=== PATIENT | male | born 1965 | race Caucasian/White ===

== ENCOUNTER 2019-07-23 16:03 | Emergency (ER) | payer OTHER ==
[~2019-07-23 16:03] MED LIST: Iopamidol 370 76% 100 ML VIAL ONE
--- NOTE | 2019-07-23 16:16 | CT ---
CT Brain WO Con: 07/23/2019 12:00 AM CLINICAL HISTORY: Facial droop, right side, right-sided weakness. COMPARISON: None. FINDINGS: Hemorrhage: None. Ventricular system: Normal in size and morphology for the patient's age. Cerebral parenchyma: Normal Midline shift: None. Mass: No mass effect. Calvarium: Normal. Visualized Paranasal sinuses: There is mucosal thickening of the paranasal sinuses.. IMPRESSION: No acute intracranial abnormalities. Telephone call findings placed at 1611 hours.
--- NOTE | 2019-07-23 16:41 | CT ---
EXAM: CT angiogram head and neck with IV contrast and 3-D reconstructions PROVIDED CLINICAL HISTORY: Level 1 stroke alert. Right-sided facial droop and right-sided blindness as well as right arm and leg weakness. COMPARISON: Noncontrast CT head on 07/23/2019. FINDINGS: Vascular calcifications and mild atherosclerotic plaque is seen in the aortic arch. The ascending tho racic aorta is ectatic measuring 4.1 cm. There is a normal arrangement of the great vessels at the aortic arch with mild narrowing involving the origin of the left common carotid artery. A portion of the right subclavian artery is obscured, but the subclavian arteries are patent bilaterally. The innominate artery and right common carotid artery are patent. Vascular calcifications are seen at the carotid artery bifurcations bilaterally. No significant steno sis is seen involving the internal carotid arteries bilaterally. External carotid arteries are patent. The petrous portion of each internal carotid artery is not well opacified. Mild vascular calc ifications are seen in each carotid siphon. The right vertebral artery is dominant and patent. The left vertebral artery is smaller in caliber an d arises from the aortic arch is also patent. The bilateral middle cerebral and anterior cerebral arteries are patent. No focal stenosis or branch occlusion is identified. The distal vertebral arteries and basilar artery as well as posterior cerebral arteries are patent. No focal aneurysm is seen within the limitations of the technique of this exam. Large bullous emphyse matous changes are seen within the right upper lobe with minimal bullous subcentimeter changes and pleural parenchymal scarring in the left upper lobe. There is complete opacification of the right maxillary antrum. IMPRESSION: 1. Minimal atherosclerotic plaque and calcifications at the carotid artery bifurcations, but no focal stenosis is seen involving the internal carotid arteries bilaterally. Petrous portion of each internal carotid artery is not well opacified but are symmetric in appearance bilaterally. 2. No focal stenosis or branch occlusion is seen involving the [place] or vertebral basilar system. 3. Above findings discussed Dr. Wade in the emergency department on 07/23/2019 at 1636 hours.
[2019-07-23] MEDS ORDERED: diphenhydrAMINE 50 MG/ML VIAL ONE (16:46)
[2019-07-23] MEDS ORDERED: methylPREDNISolone Sod Succ/PF 125 MG/2 ML VIAL ONE (16:46)
[2019-07-23] MEDS ORDERED: Metoclopramide HCl 10 MG/2 ML VIAL ONE (16:46)
[2019-07-23 17:02] LABS: #Eosinphils 0.5 thou/uL (0.0-0.7); #Lymphocytes 2.1 thou/uL (1.20-3.40); #Monocytes 0.7 thou/uL (0.11-0.59); #Neutrophils 5.4 thou/uL (1.40-6.50); %Basophils 0.3 % (0.0-1.0); %Eosinophils 5.7 % (0.0-10.0); %Lymphocytes 23.9 % (21.0-51.0); %Neutrophils 62.2 % (42.0-75.0); Mean Corpuscular Hemoglobin 31.8 pg (27.0-31.0); Mean Corpuscular Volume 93.6 fL (78.0-98.0); Mean Platelet Volume 7.2 fL (7.4-10.4); Platelet Count 354 thou/uL (130-400); RBC Distribution Width 11.7 % (11.5-14.5); Red Blood Cell (RBC) Count 4.41 mill/uL (4.70-6.10); White Blood Cell (WBC) Count 8.6 thou/uL (4.8-10.8)
[2019-07-23 17:07] LABS: PTT 28.2 SEC (22.9-36.1); Prothrombin Time 12.7 SEC (12.0-14.7)
[2019-07-23 17:08] LABS: Bilirubin Negative (Negative); Blood, Urine Negative (Negative); Clarity Clear (Clear); Glucose, Urine (Dipstick) Normal (Negative); Leukocyte Negative Leu/uL (Negative); Nitrite Negative (Negative); Protein, Urine (Dipstick) Negative (Neg-Trace); Urobilinogen Normal mg/dL (Less than 2)
[2019-07-23 17:20] LABS: ALT (SGPT) 13 U/L (8-55); AST (SGOT) 18 U/L (5-34); Albumin 4.5 g/dL (3.5-5.0); Alkaline Phosphatase 62 U/L (40-110); Anion Gap 16 mmol/L (10-20); BUN (Urea Nitrogen) 13 mg/dL (8.4-25.7); Bilirubin, Total 0.6 mg/dL (0.2-1.2); CK (CPK) 235 U/L (30-200); Calc. Creatinine Clearance 0 mL/min (70-130); Calcium 9.8 mg/dL (7.8-10.44); Carbon Dioxide 20 mmol/L (22-29); Chloride 108 mmol/L (98-107); Estimated GFR-MDRD Greater than 90; Globulin 2.8 g/dL (2.4-3.5); Glucose 91 mg/dL (70-105); Potassium 4.2 mmol/L (3.5-5.1); Protein, Total 7.3 g/dL (6.0-8.3); Sodium 140 mmol/L (136-145)
[2019-07-23] MEDS ORDERED: Magnesium 2 GM/50 ML BAG (IN WATER) ONE (18:12)
[2019-07-23] MEDS ORDERED: Ketorolac Tromethamine 30 MG/ML VIAL ONE (18:12)
[2019-07-23] MEDS ORDERED: Metoprolol Tartrate 5 MG/5 ML VIAL ONE (22:05)
== END 2019-07-23 22:32 | disposition short-term general hospital (02) ==
LOC: ERS 16:03 → EEVIPCON 16:03 → ERS 22:32
DX: I63.9 Cerebral infarction, unspecified (principal); I48.92 Unspecified atrial flutter; I10 Essential (primary) hypertension; Z79.82 Long term (current) use of aspirin; Z79.899 Other long term (current) drug therapy
CPT/HCPCS: 70450; 70496; 70498; 80053; 81003; 82550; 84484; 85025; 85610; 85730; 93005; 96361; 96365; 96375; J1200; J1885; J2765; J2930; J3475; Q9967